=== PATIENT | female | born 1995 | race Two or more races ===

== ENCOUNTER 2017-01-01 05:33 | Emergency (ER) | payer OTHER ==
[~2017-01-01 05:33] MED LIST: IBUP80TA PO
[2017-01-01 08:30] LABS: BASO % 0.5 % (0.0-1.0); EOS # 0.3 K/mm3 (0.0-0.50); EOS % 3.8 % (0.0-3.0); LARGE UNSTAINED CELL # 0.2 K/mm3 (0.0-0.4); LARGE UNSTAINED CELL % 1.8 % (0.0-4.0); LYMPH # 3.1 K/mm3 (1.5-6.5); LYMPH % 34.5 % (24.0-44.0); MEAN CORPUSCULAR HEMOGLOBIN 30.2 pg (27.0-33.0); MEAN CORPUSCULAR HGB CONC 33.6 g/dl (32.0-36.5); MONO # 0.4 K/mm3 (0.0-0.8); MONO % 4.5 % (0.0-5.0); NEUTROPHILS # 4.6 K/mm3 (1.8-7.7); NEUTROPHILS % 54.7 % (36.0-66.0); PLATELET COUNT, AUTOMATED 233 k/mm3 (150-450); RED CELL DISTRIBUTION WIDTH 11.9 % (11.5-14.5); WHITE BLOOD COUNT 8.5 K/mm3 (4.0-10.0)
[2017-01-01 08:39] LABS: CONTROL LINE HCG INT CTR LINE PRESENT
[2017-01-01 08:46] LABS: ALBUMIN 3.9 GM/DL (3.2-5.2); ALBUMIN/GLOBULIN RATIO 0.93 (1.00-1.93); ALKALINE PHOSPHATASE 99 U/L (45-117); ALT/SGPT 17 U/L (12-78); ANION GAP 10 MEQ/L (8-16); AST/SGOT 16 U/L (15-37); BILIRUBIN,TOTAL 0.2 MG/DL (0.2-1.0); BLOOD UREA NITROGEN 11 MG/DL (7-18); CALCIUM LEVEL 8.2 MG/DL (8.5-10.1); CARBON DIOXIDE LEVEL 23 MEQ/L (21-32); CHLORIDE LEVEL 110 MEQ/L (98-107); CREATININE FOR GFR 0.62 MG/DL (0.55-1.02); GLOMERULAR FILTRATION RATE > 60.0 (>60); GLUCOSE, FASTING 77 MG/DL (70-105); POTASSIUM SERUM 3.8 MEQ/L (3.5-5.1); SODIUM LEVEL 143 MEQ/L (136-145); TOTAL PROTEIN 8.1 GM/DL (6.4-8.2)
[2017-01-01] MEDS ORDERED: ULIPRISTAL ACETATE 30 MG TAB (ELLA) As Ordered ONE (09:09)
[2017-01-01 09:17] LABS: CONTROL LINE INT CTR LINE PRESENT
[2017-01-01] MEDS ORDERED: EXPOSURE KIT-ADULT 7 DAY SUPPLY As Ordered ONE (13:05)
[2017-01-01] MEDS ORDERED: cefTRIAXone SOD 250 MG VIAL (J0696) As Ordered ONE (13:05)
[2017-01-01] MEDS ORDERED: metroNIDAZOLE (FLAGYL) 500 MG TAB As Ordered ONE (13:05)
[2017-01-01] MEDS ORDERED: AZITHROMYCIN 250 MG TAB As Ordered ONE (13:06)
[2017-01-01] MEDS ORDERED: LIDOCAINE 1% MDV 20ML VIAL As Ordered ONE (13:06)
[2017-01-01] MEDS ORDERED: ONDANSETRON 4 MG ORAL DISINTEGRATING TAB (S0181) As Ordered ONE (14:16)
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
[2017-01-02 10:13] LABS: HEPATITIS B SURFACE ANTIBODY POSITIVE (POSITIVE)
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
== END 2017-01-01 14:29 | disposition home or self-care (01) ==
LOC: M ED 05:33
DX: Z04.41 Encounter for examination and observation following alleged adult rape (principal)
CPT/HCPCS: 80053; 84703; 85025; 86706; 86780; 86803; 87070; 87077; 87081; 87110; 87186; 87210; 87340; 87491; 87529; 87591; 87806; 96372; 99283; J0696

== ENCOUNTER 2018-03-06 13:15 | Emergency (ER) | payer OTHER ==
[2018-03-06 14:23] LABS: BASO # 0.1 10^3/uL (0.0-0.2); BASO % 0.9 % (0.0-1.0); EOS # 0.3 10^3/uL (0.0-0.50); EOS % 3.5 % (0.0-3.0); HEMATOCRIT 39.1 % (36.0-47.0); IMMATURE GRANULOCYTE % 0.3 % (0-3.0); LYMPH # 2.3 10^3/uL (1.5-6.5); LYMPH % 29.9 % (24.0-44.0); MEAN CORPUSCULAR HEMOGLOBIN 30.1 pg (27.0-33.0); MEAN CORPUSCULAR HGB CONC 33.2 g/dl (32.0-36.5); MEAN CORPUSCULAR VOLUME 90.5 fl (80.0-96.0); MONO # 0.4 10^3/uL (0.0-0.8); MONO % 4.9 % (0.0-5.0); NEUTROPHILS # 4.7 10^3/uL (1.8-7.7); NEUTROPHILS % 60.5 % (36.0-66.0); PLATELET COUNT, AUTOMATED 253 10^3/uL (150-450); RED BLOOD COUNT 4.32 10^6/uL (4.00-5.40); RED CELL DISTRIBUTION WIDTH 11.9 % (11.5-14.5); WHITE BLOOD COUNT 7.8 10^3/uL (4.0-10.0)
[2018-03-06] MEDS: KETOROLAC 30 MG/ML VIAL (J1885) IV (14:30)
[2018-03-06] MEDS: METOCLOPRAMIDE INJ 10MG/2ML VIAL (J2765) IV (14:30)
[2018-03-06] MEDS: NS 1,000 ML IV (14:30)
[2018-03-06 15:02] LABS: ANION GAP 6 MEQ/L (8-16); BLOOD UREA NITROGEN 7 MG/DL (7-18); CALCIUM LEVEL 8.7 MG/DL (8.5-10.1); CARBON DIOXIDE LEVEL 26 MEQ/L (21-32); CHLORIDE LEVEL 109 MEQ/L (98-107); CREATININE FOR GFR 0.73 MG/DL (0.55-1.30); GLOMERULAR FILTRATION RATE > 60.0 (>60); GLUCOSE, FASTING 77 MG/DL (70-100); POTASSIUM SERUM 3.8 MEQ/L (3.5-5.1); SODIUM LEVEL 141 MEQ/L (136-145)
[2018-03-06 15:16] LABS: ERYTHROCYTE SEDIMENTATION RATE 16 mm/hr (0-20)
== END 2018-03-06 15:27 | disposition home or self-care (01) ==
LOC: M ED 13:15
DX: G43.909 Migraine, unspecified, not intractable, without status migrainosus (principal); F17.200 Nicotine dependence, unspecified, uncomplicated
CPT/HCPCS: J1885